=== PATIENT | female | born 1990 | race Caucasian/White ===

== ENCOUNTER 2024-04-26 19:53 | Emergency (ER) | payer OTHER ==
[2024-04-26] MEDS ORDERED: IBUPROFEN 600 MG TABLET (FP) PO ONE (20:09)
[2024-04-26] MEDS: IBUPROFEN 600 MG TABLET (FP) PO ONE (20:12)
[2024-04-26 20:23] VITALS: BP 132/81; PULSE 90; RESP 17; TEMP 98.6; BMI 28.1
[2024-04-26] MEDS ORDERED: CEPHALEXIN MONOHYDRATE 500 MG CAPSULE (UD) ONE (20:49)
[2024-04-26] MEDS: CEPHALEXIN MONOHYDRATE 500 MG CAPSULE (UD) PO ONE (20:55)
== END 2024-04-26 21:03 | disposition home or self-care (01) ==
LOC: FER 19:53
DX: S61.317A Laceration without foreign body of left little finger with damage to nail, initial encounter (principal); W23.1XXA Caught, crushed, jammed, or pinched between stationary objects, initial encounter
CPT/HCPCS: 73140-TC-LT-FY; 99283-25